=== PATIENT | male | born 1995 | race Caucasian/White ===

== ENCOUNTER 2021-10-31 18:55 | Emergency (ER) | payer OTHER, SELFPAY ==
[2021-10-31 19:11] VITALS: BP 113/55; PULSE 79; RESP 16; TEMP 37.3; O2SAT 100
--- NOTE | 2021-10-31 19:43 | ED.WOUNDLAC ---
HPI - Wound/Laceration General Chief Complaint: Wound/Laceration Stated Complaint: left 3rd digit finger Time Seen by Provider: 10/31/21 19:43 Source: patient, RN notes reviewed and old records reviewed Mode of arrival: ambulatory Limitations: no limitations History of Present Illness HPI narrative: 26 year old male present to [facility] with laceration to the tip of his left 3rd finger which occurred at work shortly before arrival when cutting lettuce. Patient states the sight of his blood scares him and he came straight here applying pressure to wound, no active bleeding noted. Patient reports that his tetanus is up to date. Onset (ago): minute(s) (priot to arrival) Location: other (left 3rd finger tip) Patient tetanus UTD: Yes Treatments prior to arrival: bandage Related Data Allergies Allergy/AdvReac Type Severity Reaction Status Date / Time No Known Allergies Allergy Unknown Unverified 06/08/07 10:20 Review of Systems Review of Systems: GENERAL: Well-appearing, well-nourished, and in no acute distress. HEAD: Normocephalic, atraumatic. EYES: PERRLA and EOMI denies any eye pain or drainage ENT: Denies any nasal drainage congestion, sore throat or ear pain NECK: denies any neck pain CHEST: Clear to auscultation. No respiratory distress.denies any cough or congestion no chest pain pressure or palpitation HEART: Regular rate and rhythm. No murmur heard. Normal peripheral pulses. ABDOMEN: Soft, nontender, nondistended, normal active bowel sounds.Denies any pain nausea vomiting or diarrhea. EXTREMITIES: Normal range of motion. No edema.Denies any pain or swelling to joints or any back pain SKIN: Warm, dry, 0.5cm minimally subcutaneous laceration to tip of 3rd finger left hand NEURO: No focal deficits. Alert and oriented x3 denies any headache weakness or dizziness. All systems reviewed & are unremarkable except as noted in HPI and below PMFSH Past Medical History Medical History (Updated 11/03/21 @ 14:20 by Layla Doan NP) No significant past medical history Surgical History Surgical History (Updated 11/03/21 @ 14:18 by Layla Doan NP) History of tonsillectomy and adenoidectomy Social History Social History (Updated 11/03/21 @ 14:21 by Layla Doan NP) Smoking status: Never smoker Alcohol intake: unknown Substance use: unknown Living arrangements: with family Gender identity (if verbalized by the patient): Male Comments At time of signature, agree with nursing past medical, surgical, social and family history. There is no relevant family history pertinent to the presenting complaint Exam Narrative: GENERAL: Well-appearing, well-nourished, and in no acute distress.anxious HEAD: Normocephalic, atraumatic. EYES: PERRLA and EOMI. ENT: Nares clear, no rhinorrhea or epistaxis. Mucous membranes moist.TM's normal throat pink tonsils absent NECK: Supple. no lymphadenopathy CHEST: Clear to auscultation. No respiratory distress.SAO2 100% on room air HEART: Regular rate and rhythm. No murmur heard. Normal peripheral pulses. ABDOMEN: Soft, nontender, nondistended, normal active bowel sounds. EXTREMITIES: Normal range of motion. No edema. SKIN: Warm, dry, no rash.Laceration to Left 3rd finger tip minimally subcutaneous, 0.5cm cleansed with [employer] and saline band-aide applied. NEURO: No focal deficits. Alert and oriented x3.cm Course Course Level of Care: Express Care Visit Vital Signs Vital signs: Vital Signs Temperature 37.3 C 10/31/21 19:11 Pulse Rate 79 10/31/21 19:11 Respiratory Rate 16 10/31/21 19:11 Blood Pressure 113/55 L 10/31/21 19:11 Pulse Oximetry 100 10/31/21 19:11 Oxygen Delivery Room Air 10/31/21 19:11 Temperature 37.3 C 10/31/21 19:11 Pulse Rate 79 10/31/21 19:11 Respiratory Rate 16 10/31/21 19:11 Blood Pressure 113/55 L 10/31/21 19:11 Pulse Oximetry 100 10/31/21 19:11 Oxygen Delivery Room Air 10/31/21 19:11 MDM - Wound/L
== END 2021-10-31 20:03 | disposition home or self-care (01) ==
PROVIDERS: Emergency Provider Registered Nurse
DX: S61.213A Laceration without foreign body of left middle finger without damage to nail, initial encounter (principal); W45.8XXA Other foreign body or object entering through skin, initial encounter; Y99.0 Civilian activity done for income or pay
CPT/HCPCS: 99202; G0463